=== PATIENT | female | born 1995 | race Caucasian/White ===

== ENCOUNTER 2018-01-26 09:35 | Emergency (ER) | payer OTHER ==
[~2018-01-26] VITALS: Ht 162.6 cm; Wt 80.8 kg
[2018-01-26] MEDS ORDERED: NORG1TAB6 PO (09:50)
[2018-01-26] MEDS ORDERED: KETOROLAC 60 MG/2 ML IM ONE (10:00)
[2018-01-26] MEDS ORDERED: DIAZEPAM 5 MG TABLET PO ONE (10:00)
[2018-01-26] MEDS ORDERED: ONDANSETRON ODT 4 MG PO ONE (10:00)
[2018-01-26] MEDS ORDERED: DIAZEPAM 5 MG TABLET ONE (10:03)
[2018-01-26] MEDS ORDERED: KETOROLAC 30 MG/1 ML ONE (10:03)
[2018-01-26] MEDS ORDERED: ONDANSETRON ODT 4 MG ONE (10:03)
[2018-01-26] MEDS ORDERED: HYDROmorphone 2 MG/ML, 1ML ONE (10:45)
[2018-01-26] MEDS ORDERED: HYDROmorphone 2 MG/ML, 1ML IM ONE (11:00)
[2018-01-26] MEDS ORDERED: HYDROmorphone 1 MG/ML, 1ML IM ONE (11:00)
[2018-01-26 11:06] VITALS: BP 109/70
== END 2018-01-26 11:30 | disposition home or self-care (01) ==
LOC: ED 11:24
DX: R51 Headache (principal)
CPT/HCPCS: 96372; 99284; J1170; J1885; Q0162